=== PATIENT | male | born 1955 | race Caucasian/White ===

== ENCOUNTER 2021-12-21 13:57 | Emergency (ER) | payer MEDICARE, SELFPAY ==
[2021-12-21 14:04] VITALS: BP 132/90; PULSE 92; RESP 16; TEMP 37.2; O2SAT 95
[2021-12-21 14:47] VITALS: RESP 20
--- NOTE | 2021-12-21 14:59 | NUR.NOTE ---
Spoke with patient about his wishes about being given his suboxone. Patient is from [place], visiting [place] for 3 weeks then going to visit [place]. PAtient has been on suboxone for 8 years. He decided 10 days ago to stop medication. He attempted to contact the MD that prescribed medications. He refused to send a prescription in. Patient stated he is uncomfortable and is afraid he will start using again. We are unable to verify the dosage of his suboxone. PAtient discussed about trying to contact his former PCP of 30 years on thursday about a prescription. I advised the patient we are more than willing to treat his symptoms. PAtient wanted to go home and contact former PCP on thursday. HE stated he would come back if he wanted our help.:
== END 2021-12-21 14:57 ==
PROVIDERS: Emergency Provider Physician Assistant
DX: Z53.21 Procedure and treatment not carried out due to patient leaving prior to being seen by health care provider (principal)